=== PATIENT | male | born 1950 | race African-American/Black ===

== ENCOUNTER 2020-04-08 13:17 | Emergency (ER) | payer OTHER ==
[~2020-04-08] VITALS: Ht 167.6 cm; Wt 59.0 kg
[2020-04-08 13:21] VITALS: BP 142/76
[2020-04-08] MEDS ORDERED: OXYCODONE (13:21)
== END 2020-04-08 13:45 | disposition home or self-care (01) ==
LOC: ER 13:37
DX: R06.02 Shortness of breath (principal)
CPT/HCPCS: 99283

== ENCOUNTER 2021-09-04 02:48 | Inpatient (IN) | payer OTHER ==
[~2021-09-04] VITALS: Ht 167.6 cm; Wt 70.8 kg
[~2021-09-04 02:48] MED LIST: OXYCODONE
[2021-09-04] MEDS ORDERED: MORPHINE SULFATE 4 MG/ML CPJ (NOT FOR IM USE) IV STA (03:35)
[2021-09-04] MEDS ORDERED: VANCOMYCIN 1G PREMIX 200 ML IV STA (03:35)
[2021-09-04] MEDS ORDERED: PIPERACILLIN/TAZOBACTAM 3.375GM/50ML PREMIX IV STA (03:35)
[2021-09-04] MEDS: PIPERACILLIN/TAZ 3.375G PREMIX 50 ML IV NR ×2 (04:00→04:20)
[2021-09-04 04:30] LABS: BASOPHILS % 0.6 % (0.0-2.0); EOSINOPHILS % 0.2 % (0.0-5.0); HEMATOCRIT. 36.9 % (42.0-52.0); HEMOGLOBIN. 11.7 g/dL (14.0-18.0); LYMPHOCYTES % 8.4 % (20.0-50.0); MEAN CORPUSCULAR HEMOGLOBIN 32.2 pg (28.0-32.0); MEAN CORPUSCULAR VOLUME 101.4 fL (80.0-94.0); MONOCYTES % 6.8 % (2.0-8.0); PLATELET 68 x1000/uL (130-400); RED BLOOD CELL COUNT 3.64 mill/uL (4.7-6.1); RED CELL DISTRIBUTION WIDTH 18.3 % (11.6-14.6)
[2021-09-04 04:39] LABS: CHLORIDE 105 mEq/L (98-107)
[2021-09-04 04:40] LABS: INR 1.5; PROTHROMBIN TIME 15.7 sec (9.6-11.0)
[2021-09-04] MEDS ORDERED: MORPHINE SULFATE 4 MG/ML CPJ (NOT FOR IM USE) IV ONE (05:30)
[2021-09-04] MEDS ORDERED: SODIUM CHLORIDE 0.9% 500 ML IV ONE (05:45)
[2021-09-04] MEDS ORDERED: DEXTROSE 50% WATER 50ML SYRINGE IV ONE ×2 (06:00→14:15)
[2021-09-04] MEDS ORDERED: ASPIRIN 325MG TABLET PO ONE (06:00)
[2021-09-04] MEDS ORDERED: DEXTROSE 50% WATER 50ML SYRINGE IV NR ×2 (06:45→14:30)
[2021-09-04 07:00] LABS: PLATELET ESTIMATE DECREASED
[2021-09-04] MEDS ORDERED: NOREPINEPHRINE 8MG/250ML PMX 250 ML IV STA (07:13)
[2021-09-04] MEDS ORDERED: HEPARIN 25,000 UNITS PREMIX 250 ML IV ONE ×2 (07:15→07:30)
[2021-09-04] MEDS ORDERED: HEPARIN 5000 UNITS/ML VIAL IV NR (08:00)
[2021-09-04] MEDS ORDERED: HEPARIN 5000 UNITS/ML VIAL IV PRN ×2 (08:00)
[2021-09-04] MEDS: HEPARIN 25,000 UNITS PREMIX 250 ML IV PRN (08:42)
[2021-09-04] MEDS ORDERED: NOREPINEPHRINE 8MG/250ML PMX 250 ML IV NR (08:45)
[2021-09-04] MEDS ORDERED: ONDANSETRON HCL 4MG/2ML INJ IV PRN (09:45)
[2021-09-04] MEDS ORDERED: HYDROCODONE/ACETAMINOPHEN 5/325MG TABLET PO PRN (09:45)
[2021-09-04] MEDS ORDERED: CLONIDINE 0.1MG TABLET PO PRN (09:45)
[2021-09-04] MEDS ORDERED: IPRATROPIUM/ALBUTEROL 0.5-3(2.5)MG/3ML NEB NEB PRN (09:45)
[2021-09-04] MEDS: SODIUM CHLORIDE 0.45% 1,000 ML IV SCH ×3 (09:45→21:17)
[2021-09-04] MEDS ORDERED: MAGNESIUM/ALUMINUM HYDROXIDE/SIMETHICONE 30ML UDC PO PRN (09:45)
[2021-09-04] MEDS ORDERED: GUAIFENESIN 200MG/10ML SUGAR FREE UDC PO PRN (09:45)
[2021-09-04] MEDS ORDERED: ACETAMINOPHEN 325MG TABLET PO PRN ×2 (09:45)
[2021-09-04] MEDS ORDERED: VANCOMYCIN 750MG PMX (XELLIA) 150 ML IV NR (11:00)
[2021-09-04] MEDS: MIDODRINE HCL 5MG TABLET PO SCH ×3 (11:19→19:01)
[2021-09-04 14:30] VITALS: BP_SYST 82; BP_SYST 88; BP_DIAS 46
[2021-09-04] MEDS ORDERED: CEFEPIME 1,000 MG in DEXTROSE 5% WATER 50 ML IV SCH (15:00)
[2021-09-04] MEDS ORDERED: NALOXONE HCL 0.4MG/ML VIAL IV PRN (15:15)
[2021-09-04 15:51] LABS: HEPATITIS B SURFACE ANTIGEN NEGATIVE
[2021-09-04 16:00] VITALS: BP 97/67
[2021-09-04 18:00] VITALS: BP 112/81
[2021-09-04] MEDS: PANTOPRAZOLE SODIUM 40 MG/VIAL IV SCH (19:00)
[2021-09-04 19:35] LABS: TOTAL IRON BINDING CAPACITY 146 ug/dL (250-450)
[2021-09-04 20:00] VITALS: BP 97/62
[2021-09-04 20:07] LABS: VITAMIN B12 SERUM >2000 pg/mL pg/mL (211-911)
[2021-09-04 20:52] LABS: FERRITIN 3461 ng/mL (22-322)
[2021-09-04] MEDS ORDERED: PIPERACILLIN/TAZOBACTAM 3.375 G in DEXTROSE 5% WATER 50 ML IV SCH (21:00)
[2021-09-04] MEDS: ATORVASTATIN CALCIUM 40MG TABLET PO SCH (21:18)
[2021-09-04 22:00] VITALS: BP 94/64
[2021-09-05] VITALS (12 sets, daily range): BP systolic 77–136; BP diastolic 40–64
[2021-09-05] MEDS: HEPARIN 25,000 UNITS PREMIX 250 ML IV PRN (01:31)
[2021-09-05] MEDS: SODIUM CHLORIDE 0.45% 1,000 ML IV SCH (05:00)
[2021-09-05] MEDS: PANTOPRAZOLE SODIUM 40 MG/VIAL IV SCH (08:25)
[2021-09-05] MEDS: MIDODRINE HCL 5MG TABLET PO SCH ×3 (08:26→16:18)
[2021-09-05] MEDS: ASPIRIN 81MG TABLET PO SCH (08:29)
[2021-09-05 09:07] LABS: BASOPHILS % 0.2 % (0.0-2.0); EOSINOPHILS % 0.6 % (0.0-5.0); HEMATOCRIT. 38.4 % (42.0-52.0); HEMOGLOBIN. 12.5 g/dL (14.0-18.0); LYMPHOCYTES % 10.9 % (20.0-50.0); MEAN CORPUSCULAR HEMOGLOBIN 32.9 pg (28.0-32.0); MEAN CORPUSCULAR VOLUME 100.9 fL (80.0-94.0); MEAN PLATELET VOLUME 9.5 fl (7.4-10.4); MONOCYTES % 7.9 % (2.0-8.0); NEUTROPHILS % 80.4 % (40.0-76.0); PLATELET 58 x1000/uL (130-400); RED CELL DISTRIBUTION WIDTH 18.1 % (11.6-14.6)
[2021-09-05 09:46] LABS: PHOSPHORUS 5.1 mg/dL (2.5-4.9)
[2021-09-05] MEDS ORDERED: DEXTROSE 50% WATER 50ML SYRINGE IV NR ×2 (10:30→11:15)
[2021-09-05] MEDS ORDERED: DEXT 5%/0.45% NACL 1000ML 1,000 ML IV SCH (11:30)
[2021-09-05] MEDS ORDERED: VANCOMYCIN 750MG PREMIX 150 ML IV NR (14:00)
[2021-09-05] MEDS: CEFEPIME 1,000 MG in DEXTROSE 5% WATER 50 ML IV SCH (17:00)
[2021-09-05 18:46] LABS: INR 1.7; PROTHROMBIN TIME 17.2 sec (9.6-11.0)
[2021-09-05] MEDS: ATORVASTATIN CALCIUM 40MG TABLET PO SCH (20:57)
[2021-09-06] VITALS (12 sets, daily range): BP systolic 84–134; BP diastolic 34–76
[2021-09-06] MEDS: DEXTROSE 50% WATER 50ML SYRINGE IV PRN ×2 (01:04→09:02)
[2021-09-06 03:45] LABS: BASOPHILS % 0.3 % (0.0-2.0); HEMOGLOBIN. 11.9 g/dL (14.0-18.0); LYMPHOCYTES % 13.6 % (20.0-50.0); MEAN CORPUSCULAR HEMOGLOBIN 32.4 pg (28.0-32.0); MEAN PLATELET VOLUME 8.9 fl (7.4-10.4); MONOCYTES % 9.3 % (2.0-8.0); NEUTROPHILS % 75.8 % (40.0-76.0); PLATELET 52 x1000/uL (130-400); RED BLOOD CELL COUNT 3.67 mill/uL (4.7-6.1)
[2021-09-06 03:58] LABS: PHOSPHORUS 5.1 mg/dL (2.5-4.9)
[2021-09-06] MEDS: ASPIRIN 81MG TABLET PO SCH (08:33)
[2021-09-06] MEDS: PANTOPRAZOLE SODIUM 40 MG/VIAL IV SCH (08:33)
[2021-09-06] MEDS: MIDODRINE HCL 5MG TABLET PO SCH ×3 (08:34→17:21)
[2021-09-06] MEDS: SODIUM CHLORIDE 23.4% 154 MEQ in DEXT 10% WATER 1,000 ML IV SCH (09:58)
[2021-09-06] MEDS: BLOOD SUGAR DIAGNOSTIC STRIP TEST SCH ×3 (12:45→21:13)
[2021-09-06] MEDS ORDERED: VANCOMYCIN 1GM PMX (XELLIA) 200 ML IV SCH (16:00)
[2021-09-06] MEDS: CEFEPIME 1,000 MG in DEXTROSE 5% WATER 50 ML IV SCH (18:50)
[2021-09-06] MEDS: ATORVASTATIN CALCIUM 40MG TABLET PO SCH (20:15)
[2021-09-07] VITALS (11 sets, daily range): BP systolic 67–144; BP diastolic 43–108
[2021-09-07] MEDS: SODIUM CHLORIDE 23.4% 154 MEQ in DEXT 10% WATER 1,000 ML IV SCH (06:47)
[2021-09-07 07:28] LABS: PHOSPHORUS 4.4 mg/dL (2.5-4.9)
[2021-09-07] MEDS: BLOOD SUGAR DIAGNOSTIC STRIP TEST SCH ×3 (08:05→16:45)
[2021-09-07] MEDS: PANTOPRAZOLE SODIUM 40 MG/VIAL IV SCH (09:00)
[2021-09-07] MEDS ORDERED: ENOXAPARIN 30MG/0.3ML SYR SUBCUT SCH (09:00)
[2021-09-07] MEDS: MIDODRINE HCL 5MG TABLET PO SCH ×3 (09:10→16:44)
[2021-09-07] MEDS: ASPIRIN 81MG TABLET PO SCH (09:10)
[2021-09-07] MEDS ORDERED: LIDOCAINE HCL/PF 1% 10 MG/ML 5ML VIAL ONE (10:28)
[2021-09-07 10:46] LABS: BASOPHILS % 0.3 % (0.0-2.0); EOSINOPHILS % 0.3 % (0.0-5.0); HEMOGLOBIN. 11.7 g/dL (14.0-18.0); LYMPHOCYTES % 7.1 % (20.0-50.0); MEAN CORPUSCULAR HEMOGLOBIN 32.8 pg (28.0-32.0); MEAN CORPUSCULAR VOLUME 101.1 fL (80.0-94.0); MEAN PLATELET VOLUME 10.2 fl (7.4-10.4); MONOCYTES % 6.7 % (2.0-8.0); NEUTROPHILS % 85.6 % (40.0-76.0); PLATELET 53 x1000/uL (130-400); RED BLOOD CELL COUNT 3.56 mill/uL (4.7-6.1); RED CELL DISTRIBUTION WIDTH 18.6 % (11.6-14.6)
[2021-09-07] MEDS: CEFEPIME 1,000 MG in DEXTROSE 5% WATER 50 ML IV SCH (16:45)
== END 2021-09-07 21:50 | disposition short-term general hospital (02) | DRG 871 ==
LOC: ER 02:48 → 5EST 07:37 → SUPCPDRO 08:54 → EDBEDREQSVC 10:54 → 5EST 09-07 14:51
PROVIDERS: ADMIT Internal Medicine; ATTEND Internal Medicine
PROC: 5A1D70Z Performance of Urinary Filtration, Intermittent, Less than 6 Hours Per Day (ICD-10-PCS; 2021-09-04)
PROC: 02HV33Z Insertion of Infusion Device into Superior Vena Cava, Percutaneous Approach (ICD-10-PCS; principal; 2021-09-07)
PROC: B5181ZA Fluoroscopy of Superior Vena Cava using Low Osmolar Contrast, Guidance (ICD-10-PCS; 2021-09-07)
PROC: B548ZZA Ultrasonography of Superior Vena Cava, Guidance (ICD-10-PCS; 2021-09-07)
DX: A41.9 Sepsis, unspecified organism (principal); I21.4 Non-ST elevation (NSTEMI) myocardial infarction; R65.21 Severe sepsis with septic shock; I50.21 Acute systolic (congestive) heart failure; N18.6 End stage renal disease; R57.0 Cardiogenic shock; E44.0 Moderate protein-calorie malnutrition; E87.2 Acidosis; L97.919 Non-pressure chronic ulcer of unspecified part of right lower leg with unspecified severity; I96 Gangrene, not elsewhere classified; R18.8 Other ascites; E11.52 Type 2 diabetes mellitus with diabetic peripheral angiopathy with gangrene; I13.2 Hypertensive heart and chronic kidney disease with heart failure and with stage 5 chronic kidney disease, or end stage renal disease; D53.9 Nutritional anemia, unspecified; D69.6 Thrombocytopenia, unspecified; E11.649 Type 2 diabetes mellitus with hypoglycemia without coma; I45.10 Unspecified right bundle-branch block; E11.22 Type 2 diabetes mellitus with diabetic chronic kidney disease; Z68.25 Body mass index [BMI] 25.0-25.9, adult; L97.529 Non-pressure chronic ulcer of other part of left foot with unspecified severity; N28.1 Cyst of kidney, acquired; K76.0 Fatty (change of) liver, not elsewhere classified; R74.01 Elevation of levels of liver transaminase levels; L97.519 Non-pressure chronic ulcer of other part of right foot with unspecified severity; I95.9 Hypotension, unspecified; E80.6 Other disorders of bilirubin metabolism; Z20.822 Contact with and (suspected) exposure to COVID-19; Z90.49 Acquired absence of other specified parts of digestive tract; Z85.038 Personal history of other malignant neoplasm of large intestine; Z82.49 Family history of ischemic heart disease and other diseases of the circulatory system; Z85.048 Personal history of other malignant neoplasm of rectum, rectosigmoid junction, and anus; Z99.2 Dependence on renal dialysis
CPT/HCPCS: 36415; 36573; 71045; 73630; 74181; 76700; 80048; 80053; 80076; 80202; 82248; 82607; 82728; 82746; 82947; 82962; 83036; 83540; 83550; 83605; 83735; 84100; 84145; 84443; 84484; 85025; 85044; 85651; 86140; 86705; 86709; 86803; 87340; 87426; 93005; 93306; 93923; 93970; 99291; C1725; C1769; C9113; C9803; J0692; J1644; J2270; J2543; J3370; J3490; J7040; J7060; J7131